=== PATIENT | female | born 1995 | race African-American/Black ===

== ENCOUNTER 2022-01-17 18:56 | Emergency (ER) | payer SELFPAY ==
[~2022-01-17] VITALS: Ht 165.1 cm; Wt 61.0 kg
[2022-01-17] MEDS ORDERED: SODIUM CHLORIDE 0.9% 1,000 ML IV ONE (19:30)
[2022-01-17 20:24] LABS: BASOPHILS % 0.8 % (0.0-2.0); EOSINOPHILS % 2.7 % (0.0-5.0); HEMATOCRIT. 45.7 % (36.0-48.0); HEMOGLOBIN. 15.5 g/dL (12.0-16.0); LYMPHOCYTES % 49.7 % (20.0-50.0); MEAN CORPUSCULAR HEMOGLOBIN 32.9 pg (28.0-32.0); MEAN PLATELET VOLUME 7.8 fl (7.4-10.4); MONOCYTES % 4.3 % (2.0-8.0); NEUTROPHILS % 42.5 % (40.0-76.0); PLATELET 214 x1000/uL (130-400); RED BLOOD CELL COUNT 4.72 mill/uL (4.2-5.4); RED CELL DISTRIBUTION WIDTH 13.9 % (11.6-14.6)
[2022-01-17 20:25] LABS: CLARITY URINE CLEAR (CLEAR); COLOR URINE YELLOW (YELLOW); KETONES URINE NEGATIVE (NEGATIVE); LEUKOCYTE ESTERASE URINE TRACE (NEGATIVE); NITRITE URINE NEGATIVE (NEGATIVE); OCCULT BLOOD URINE NEGATIVE (NEGATIVE); PH URINE 5.5 (4.5-8.0); PROTEIN URINE NEGATIVE (NEGATIVE); SPECIFIC GRAVITY URINE 1.011 (1.005-1.030); UROBILINOGEN URINE 0.2 E.U./dL (0.2-1.0)
[2022-01-17 20:32] LABS: CHLORIDE 112 mEq/L (98-107)
[2022-01-17 20:35] LABS: *AMPHETAMINES SCREEN URINE NEGATIVE (NEGATIVE); *BARBITURATES SCREEN URINE NEGATIVE (NEGATIVE); *BENZODIAZEPINES SCREEN URINE NEGATIVE (NEGATIVE); METHADONE URINE SCREEN NEGATIVE (NEGATIVE); OPIATES URINE SCREEN NEGATIVE (NEGATIVE)
[2022-01-17 20:36] LABS: *COCAINE SCREEN URINE PRESUMTIVE POSITIVE (NEGATIVE); CANNABINOID URINE SCREEN PRESUMTIVE POSITIVE (NEGATIVE); PHENCYCLIDINE URINE SCREEN PRESUMTIVE POSITIVE (NEGATIVE)
[2022-01-17 20:37] LABS: HCG SCREEN NEGATIVE
[2022-01-17 20:39] LABS: ETHANOL BLOOD 299 mg/dL
[2022-01-18 05:41] VITALS: BP 102/71
[2022-01-18] MEDS ORDERED: TOPUD PO (11:26)
== END 2022-01-18 06:00 | disposition home or self-care (01) ==
LOC: ER 18:56 → EDBD 18:56 → ER 01-18 06:00
DX: T50.7X1A Poisoning by analeptics and opioid receptor antagonists, accidental (unintentional), initial encounter (principal); X58.XXXA Exposure to other specified factors, initial encounter
CPT/HCPCS: 36415; 70450; 71045; 80053; 80305; 80307; 80320; 80329; 81003; 82140; 82962; 84484; 84703; 85025; 96360; 96361; 99285; J7030; G0480

== ENCOUNTER 2022-01-18 06:21 | Emergency (ER) | payer MEDICAID ==
[~2022-01-18] VITALS: Ht 170.2 cm; Wt 82.0 kg
[2022-01-18] MEDS ORDERED: KETOROLAC 30MG/ML VIAL IV STA (07:05)
[2022-01-18] MEDS ORDERED: SODIUM CHLORIDE 0.9% 1,000 ML IV ONE (07:15)
[2022-01-18] MEDS ORDERED: METOCLOPRAMIDE HCL 10MG/2ML VIAL IV ONE (07:15)
[2022-01-18 10:07] LABS: BASOPHILS % 0.7 % (0.0-2.0); CHLORIDE 110 mEq/L (98-107); EOSINOPHILS % 2.6 % (0.0-5.0); HEMOGLOBIN. 15.2 g/dL (12.0-16.0); LYMPHOCYTES % 37.6 % (20.0-50.0); MEAN CORPUSCULAR HEMOGLOBIN 33.2 pg (28.0-32.0); MEAN PLATELET VOLUME 7.8 fl (7.4-10.4); MONOCYTES % 6.3 % (2.0-8.0); NEUTROPHILS % 52.8 % (40.0-76.0); PLATELET 201 x1000/uL (130-400); RED BLOOD CELL COUNT 4.59 mill/uL (4.2-5.4); RED CELL DISTRIBUTION WIDTH 14.3 % (11.6-14.6)
[2022-01-18 10:15] VITALS: BP 127/91
[2022-01-18] MEDS ORDERED: METOCLOPRAMIDE HCL 10MG/2ML VIAL IV NR (10:15)
[2022-01-18] MEDS ORDERED: KETOROLAC 30MG/ML VIAL IV NR (10:15)
[2022-01-18] MEDS ORDERED: TOPUD PO (11:26)
== END 2022-01-18 12:30 | disposition home or self-care (01) ==
LOC: ER 06:38
DX: R51.9 Headache, unspecified (principal); F14.10 Cocaine abuse, uncomplicated; F16.10 Hallucinogen abuse, uncomplicated; Z98.890 Other specified postprocedural states
CPT/HCPCS: 36415; 70450; 80053; 85025; 99284; J1885; J2765; J7030

== ENCOUNTER 2022-12-24 12:55 | Emergency (ER) | payer MEDICAID ==
[~2022-12-24] VITALS: Ht 167.6 cm; Wt 79.0 kg
[~2022-12-24 12:55] MED LIST: TOPUD PO
[2022-12-24 13:14] VITALS: TEMP 98.4; O2SAT 97
[2022-12-24] MEDS ORDERED: TETRACAINE 0.5% OPHTH DROPS 4ML RIGHTEYE ONE (14:00)
[2022-12-24] MEDS ORDERED: IBUPROFEN 600MG TABLET PO ONE (14:00)
[2022-12-24] MEDS ORDERED: FLUORESCEIN SODIUM 1MG/STRIP RIGHTEYE ONE (14:00)
[2022-12-24 16:00] VITALS: BP 139/91; PULSE 73; RESP 17
[2022-12-24] MEDS ORDERED: TETRACAINE 0.5% OPHTH DROPS 4ML RIGHTEYE NR (16:00)
[2022-12-24] MEDS ORDERED: FLUORESCEIN SODIUM 1MG/STRIP RIGHTEYE NR (16:00)
[2022-12-24] MEDS ORDERED: IBUPROFEN 600MG TABLET PO NR (16:00)
[2022-12-24] MEDS ORDERED: ERYT1OIN6 RIGHTEYE (16:30)
[2022-12-24] MEDS ORDERED: IBUP-2029 MT (16:30)
[2022-12-24] MEDS ORDERED: AMOX1TAB16 MT (16:39)
== END 2022-12-24 17:11 | disposition home or self-care (01) ==
LOC: ER 12:55
DX: S00.11XA Contusion of right eyelid and periocular area, initial encounter (principal); F14.10 Cocaine abuse, uncomplicated; Z86.59 Personal history of other mental and behavioral disorders; Y04.0XXA Assault by unarmed brawl or fight, initial encounter; Y93.89 Activity, other specified; Y92.89 Other specified places as the place of occurrence of the external cause; Y99.8 Other external cause status
CPT/HCPCS: 70486; 73090; 73110; 73130; 99284

== ENCOUNTER 2023-12-06 18:21 | Emergency (ER) | payer MEDICAID ==
[~2023-12-06] VITALS: Ht 167.6 cm; Wt 66.2 kg
[~2023-12-06 18:21] MED LIST changes: +AMOX1TAB16 MT; +ERYT1OIN6 RIGHTEYE; +IBUP-2029 MT
[2023-12-06] MEDS ORDERED: ACETAMINOPHEN 325MG TABLET PO ONE (18:30)
[2023-12-06 18:46] VITALS: BP 102/69; PULSE 120; RESP 16; TEMP 98.3; O2SAT 97
== END 2023-12-06 20:28 | disposition left against medical advice (07) ==
LOC: ER 18:21
DX: N89.8 Other specified noninflammatory disorders of vagina (principal); Z53.21 Procedure and treatment not carried out due to patient leaving prior to being seen by health care provider

== ENCOUNTER 2024-05-04 21:34 | Emergency (ER) | payer SELFPAY ==
[~2024-05-04] VITALS: Ht 172.7 cm; Wt 64.0 kg
[2024-05-04 22:07] VITALS: O2SAT 100
[2024-05-05 00:06] VITALS: BP 140/98; PULSE 100; RESP 18; TEMP 98.5; O2SAT 99
== END 2024-05-05 03:27 | disposition left against medical advice (07) ==
LOC: ER 21:34
DX: T63.301A Toxic effect of unspecified spider venom, accidental (unintentional), initial encounter (principal); Y92.89 Other specified places as the place of occurrence of the external cause; Z53.21 Procedure and treatment not carried out due to patient leaving prior to being seen by health care provider
CPT/HCPCS: 99281

== ENCOUNTER 2024-05-05 06:13 | Emergency (ER) | payer SELFPAY ==
[~2024-05-05] VITALS: Ht 172.7 cm; Wt 73.0 kg
[2024-05-05 06:23] VITALS: O2SAT 100
[2024-05-05 06:54] VITALS: BP 126/82; PULSE 97; RESP 18; TEMP 98.3; O2SAT 100
[2024-05-05] MEDS ORDERED: ACETAMINOPHEN 650MG/20.3ML UDC PO ONE (07:15)
== END 2024-05-05 09:18 | disposition home or self-care (01) ==
LOC: ER 06:13
DX: L02.31 Cutaneous abscess of buttock (principal); F14.90 Cocaine use, unspecified, uncomplicated; F16.10 Hallucinogen abuse, uncomplicated
CPT/HCPCS: 99281; 99284

== ENCOUNTER 2024-05-16 15:19 | Emergency (ER) | payer SELFPAY ==
[~2024-05-16] VITALS: Ht 167.6 cm; Wt 75.0 kg
[2024-05-16 15:47] VITALS: O2SAT 95
[2024-05-16 16:54] LABS: BASOPHILS % 0.8 % (0.0-2.0); EOSINOPHILS % 2.5 % (0.0-5.0); HEMATOCRIT. 39.8 % (36.0-48.0); HEMOGLOBIN. 13.4 g/dL (12.0-16.0); LYMPHOCYTES % 50.4 % (20.0-50.0); MEAN CORPUSCULAR HEMOGLOBIN 32.2 pg (28.0-32.0); MEAN CORPUSCULAR HGB CONC 33.8 g/dL (31.0-37.0); MEAN CORPUSCULAR VOLUME 95.3 fL (81.0-99.0); MEAN PLATELET VOLUME 7.5 fl (7.4-10.4); MONOCYTES % 6.4 % (2.0-8.0); NEUTROPHILS % 39.9 % (40.0-76.0); PLATELET 227 x1000/uL (130-400); RED BLOOD CELL COUNT 4.18 mill/uL (4.2-5.4); RED CELL DISTRIBUTION WIDTH 13.3 % (11.6-14.6)
[2024-05-16 17:03] LABS: CHLORIDE 108 mEq/L (98-107); POTASSIUM 3.5 mEq/L (3.5-5.1); SODIUM 141 mEq/L (136-145)
[2024-05-16 17:04] LABS: CARBON DIOXIDE 26 mEq/L (21-32)
[2024-05-16 17:05] LABS: CALCIUM 8.9 mg/dL (8.7-10.4)
[2024-05-16 17:07] LABS: HCG SCREEN NEGATIVE
[2024-05-16 17:09] LABS: CREATININE 0.7 mg/dL (0.6-1.0); GLUCOSE 120 mg/dL (70-105)
[2024-05-16 17:10] LABS: UREA NITROGEN BLOOD 10 mg/dL (9-23)
[2024-05-16 17:24] LABS: ETHANOL BLOOD < 10 mg/dL (<10)
[2024-05-16 23:10] LABS: CLARITY URINE CLEAR (CLEAR); COLOR URINE YELLOW (YELLOW); GLUCOSE URINE NEGATIVE (NEGATIVE); KETONES URINE NEGATIVE (NEGATIVE); LEUKOCYTE ESTERASE URINE 1+ (NEGATIVE); NITRITE URINE NEGATIVE (NEGATIVE); OCCULT BLOOD URINE 3+ (NEGATIVE); PROTEIN URINE NEGATIVE (NEGATIVE); SPECIFIC GRAVITY URINE 1.017 (1.005-1.030); UROBILINOGEN URINE 0.2 E.U./dL (0.2-1.0)
[2024-05-16 23:20] LABS: *AMPHETAMINES SCREEN URINE NEGATIVE (NEGATIVE); *BARBITURATES SCREEN URINE NEGATIVE (NEGATIVE); *BENZODIAZEPINES SCREEN URINE NEGATIVE (NEGATIVE); *COCAINE SCREEN URINE PRESUMPTIVE POSITIVE (NEGATIVE); CANNABINOID URINE SCREEN PRESUMPTIVE POSITIVE (NEGATIVE); ECSTASY MDMA SCREEN URINE NEGATIVE (NEGATIVE); METHADONE URINE SCREEN NEGATIVE (NEGATIVE); OPIATES URINE SCREEN NEGATIVE (NEGATIVE); PHENCYCLIDINE URINE SCREEN PRESUMTIVE POSITIVE (NEGATIVE)
[2024-05-16 23:27] LABS: SQUAMOUS EPITHELIAL CELL URINE 2+ /lpf (RARE/1+)
[2024-05-16 23:39] LABS: BACTERIA URINE TRACE
[2024-05-16 23:40] LABS: TRICHOMONAS URINE 1+
[2024-05-17] MEDS: NITROFURANTOIN 100MG M/M CAPSULE PO ONE (08:00)
[2024-05-17] MEDS: NITROFURANTOIN 100MG M/M CAPSULE PO NR (14:28)
[2024-05-18] MEDS: OLANZAPINE 5MG TABLET ODT PO SCH (22:29)
[2024-05-20 07:45] VITALS: TEMP 36.78072
[2024-05-20 13:22] VITALS: BP 127/61; PULSE 78; RESP 18; O2SAT 95
== END 2024-05-20 13:56 | disposition home or self-care (01) ==
LOC: ER 15:26
DX: R45.851 Suicidal ideations (principal); F10.90 Alcohol use, unspecified, uncomplicated; F14.90 Cocaine use, unspecified, uncomplicated; F13.90 Sedative, hypnotic, or anxiolytic use, unspecified, uncomplicated; Z20.822 Contact with and (suspected) exposure to COVID-19; Y90.9 Presence of alcohol in blood, level not specified
CPT/HCPCS: 36415; 80048; 80305; 80320; 81003; 84703; 85025; 87426; 99285; G0480